=== PATIENT | female | born 1960 | race African-American/Black ===

== ENCOUNTER 2019-05-06 18:24 | Emergency (ER) | payer MEDICARE, SELFPAY ==
[2019-05-06 18:47] VITALS: BP 135/81; PULSE 96; RESP 16; TEMP 36.4; O2SAT 98; BMI 33.3
[2019-05-06] MEDS: KETOROLAC 60 MG/2 ML VIAL 30 MG IM (20:11)
--- NOTE | 2019-05-06 20:12 | ED_ITS ---
HPI - Back Pain/Injury <NANCY Arboleda - Last Filed: 05/06/19 20:41> General Chief Complaint: Back Pain/Injury Stated Complaint: pain in back of legs and buttocks bilat Time Seen by Provider: 05/06/19 19:46 Source: patient History of Present Illness HPI Narrative: 58-year-old female presents emergency department complaining of worsening sciatic pain or the past week and half. She states that a week and half ago she was packing boxes and lifting heavy objects up and down the stairs as she was moving. She reported after most of the moving she developed worsening sciatica pain bilaterally, she states her left is worse than her right. She has had a history of sciatica but this is significantly worse. He states the pain is in her but ox and radiates down to her legs. Patient states the pain is a dull aching to sharp stabbing 8/10 that is worse with movement and raising her leg. On her right side she has occasional numbness and tingling in her toes especially toe 4 and 5. She denies any limb weakness, loss of bowel or bladder control, fevers, chills, nausea, vomiting, diarrhea, or any other concerns. Related Data Previous Rx's Medication Instructions Recorded prednisone 40 mg PO DAILY 5 Days #10 tab 05/06/19 Allergies Allergy/AdvReac Type Severity Reaction Status Date / Time aspirin AdvReac Severe Palpitation Verified 05/06/19 18:52 s latex AdvReac Mild Redness of Verified 05/06/19 18:52 Skin zinc AdvReac Unknown Redness of Verified 05/06/19 18:52 Skin Review of Systems <NANCY Arboleda - Last Filed: 05/06/19 20:41> Review of Systems Narrative: REVIEW OF SYSTEMS: GENERAL: Denies fever or chills. HENT: No head trauma. EYES: No double vision or vision loss. CARDIOVASCULAR: No chest pain or syncope. RESPIRATORY: No shortness of breath or cough. GASTROINTESTINAL: No nausea, vomiting, diarrhea, or constipation. GENITOURINARY: No flank pain or dysuria. MUSCULOSKELETAL: Complains of bilateral leg/sciatic pain, see HPI. INTEGUMENTARY: No rash, lesions, or pruritus. NEURO: Complains of toe 4 and 5 with tingling, see HPI. PSYCH: No behavior or mood changes. Patient History <NANCY Arboleda - Last Filed: 05/06/19 20:41> Medical History No significant medical problems (Acute) Social History Smoking Status: Former smoker Smoking Status: Former smoker alcohol intake frequency: 0-2 drinks per day Substance Use Type: does not use Exam <NANCY Arboleda - Last Filed: 05/06/19 20:41> Initial Vital Signs Initial Vital Signs: Vital Signs Temperature 97.6 F 05/06/19 18:47 Pulse Rate 96 H 05/06/19 18:47 Respiratory Rate 16 05/06/19 18:47 Blood Pressure 135/81 05/06/19 18:47 Pulse Oximetry 98 05/06/19 18:47 PHYSICAL EXAMINATION: GENERAL: Well groomed, alert, and cooperative. Answers questions promptly and appropriately. Vital signs noted. HENT: Normocephalic, atraumatic. EYES: Symmetrical, sclera white, no periorbital swelling. CARDIOVASCULAR: S1 and S2 sounds normal. Regular rate and rhythm, no murmurs, clicks, or bruits. No pedal edema. RESPIRATORY: Normal respiratory rate, trachea midline, airway patent. No stridor, nasal flaring or accessory muscle use. Lungs are clear in all ramirez. MUSCULOSKELETAL: Tenderness to bilateral sciatica regions of buttocks, + striaght leg test. Normal gait and coordination. Equal tone and mass bilaterally. No spinal tenderness or deformities. Full range of motion of right and left feet against resistance. No weakness of limbs noted. EXTREMITIES: CMS intact. Pedal pulses intact and equal bilaterally. SKIN: Warm, dry, soft, appropriate color for ethnicity. No lesions, rashes, or wounds. NEURO: Alert and Oriented X 3. No sensory deficits. Intact light touch sensation to medial and lateral aspects of feet bilaterally. PSYCH: Appropriate affect and mood. <Eric Gunderson DO - Last Filed: 05/07/19 02:22> Initial Vital Signs Initial Vital Signs: Vital Signs Temperature 97.6 F 05/06/19 18:47 Pulse Rate 96 H 05/06/19 18:47 Respiratory Rate 16 05/06/19 18:47 Blood Pressure 135/81 05/06/19 18:47 Pulse Oximetry 98 05/06/19 18:47 Course <NANCY Arboleda - Last Filed: 05/06/19 20:41> Course Course Narrative: Patient was given injection of Toradol. Orders Ordered: Discontinued Medications Ketorolac Tromethamine (Toradol) 30 mg IM NOW ONE Stop: 05/06/19 19:57 Last Admin: 05/06/19 20:11 Dose: 30 mg Documented by: DIETER Vital Signs Vital signs: Vital Signs - 8 hr 05/06/19 18:47 05/06/19 20:38 Temperature 97.6 F Pulse Rate 96 H Respiratory Rate 16 Blood Pressure 135/81 123/81 Pulse Oximetry 98 <Eric Gunderson DO - Last Filed: 05/07/19 02:22> Orders Ordered: Discontinued Medications Ketorolac Tromethamine (Toradol) 30 mg IM NOW ONE Stop: 05/06/19 19:57 Last Admin: 05/06/19 20:11 Dose: 30 mg Documented by: DIETER Vital Signs Vital signs: Vital Signs - 8 hr 05/06/19 18:47 05/06/19 20:38 Temperature 97.6 F Pulse Rate 96 H Respiratory Rate 16 Blood Pressure 135/81 123/81 Pulse Oximetry 98 MDM - Back Pain/Injury <NANCY Arboleda - Last Filed: 05/06/19 20:41> Medical Records Attestation: I reviewed the patient's medical records. Lab Data Attestation: I reviewed the patient's lab results. MDM Narrative Medical decision making narrative: This is a 58-year-old female presents emergency department for worsening sciatica. She has a history of sciatica and states this pain feels very similar but is more severe in duration. She reported around the same time the pain began she was moving boxes and lifting heavy objects. Patient has been taking Flexeril, Lortab, and Advil. After discussion with patient, she elected do a try a regimen of prednisone to help with nerve irritation and swelling. We discussed that this may be more beneficial as she has had some tingling in her toes. I suspect this is related to her sciatica (similar pain, radiates down leg, positive straight leg test, history of moving objects). Less likely cauda equina due to equal strength in l ower limbs bilaterally, no loss of bowel or bladder control, no change in light touch sensation to feet. Less likely vascular due to lack of calf pain or tenderness, less likely arterial as pedal pulses are 2+ and intact bilaterally. She was given a card to establish a primary care provider. we discussed the importance of follow-up and possible physical therapy as another option diet deal with pain. She was given strict ED return precautions. Patient is a plan of care verbalized understanding. Discharge Plan Departure Patient Disposition: Home Clinical Impression: Sciatica Qualifiers: Laterality: bilateral Qualified Code(s): M54.31 - Sciatica, right side Discharge Date/Time: 05/06/19 20:38 Instructions: DI for Sciatica Activity Restrictions/Additional Instructions: Thank you for entrusting me with your care today. As discussed, your pain is most likely caused by sciatica. I have given you a prescription for prednisone which is a steroid, this can cause anxiety, insomnia, acid reflux, and increased hunger. This will help decrease the inflammation and nerve irritation. You can take Tylenol, ibuprofen, and the Lortab that you have in addition to this if needed. Follow up with a primary care provider in 1-2 weeks for further evaluation and discussion of possible physical therapy for pain continues. Return emergency department for any new or worsening symptoms such as loss of bowel or bladder control, limb weakness, severe pain, abdominal pain, high fevers, severe headaches, vision changes, or any other concerns. Prescriptions: New prednisone 20 mg tablet 40 mg PO DAILY 5 Days Qty: 10 RF: 0 <Eric Gunderson DO - Last Filed: 05/07/19 02:22> Sign Out Provider Sign Out Attestation: I was immediately available in the department for consultation. This documentation has been reviewed and I agree with assessment and plan. Supervised by Eric Gunderson DO
[2019-05-06 20:38] VITALS: BP 123/81
== END 2019-05-06 20:38 | disposition home or self-care (01) ==
PROVIDERS: Emergency Provider Nurse Practitioner
DX: M54.31 Sciatica, right side (principal)
CPT/HCPCS: 96372; 99283; J1885

== ENCOUNTER → 2019-12-28 08:29 | Outpatient (CLI) | payer OTHER, SELFPAY ==
--- NOTE | 2019-12-28 | DI.MG.S_ITS ---
BILATERAL DIGITAL DIAGNOSTIC MAMMOGRAM 3D/2D: 12/28/2019 CLINICAL: Right breast lump which has now resolved. Patient is currently asymptomatic. Comparison is made to exams dated: 11/23/2018 mammogram, 12/13/2016 mammogram, and 12/11/2015 mammogram - [facility]. The tissue of both breasts is heterogeneously dense. This may lower the sensitivity of mammography. No significant masses, calcifications, or other findings are seen in either breast. IMPRESSION: NEGATIVE There is no abnormality seen in the right breast to correspond with the area of clinical concern, palpable abnormality and pain (both of which has now resolved), however, recommend clinical follow up for persistent or worsening symptoms, or development of any clinically suspicious findings. There is no mammographic evidence of malignancy. A 1 year screening mammogram is recommended. This exam was interpreted at Station ID: [id number]. NOTE: For mammograms, a report in lay terms will be sent to the patient. Approximately 15% of breast malignancies will not be visualized mammographically. In the management of a palpable breast mass, a negative mammogram must not discourage biopsy of a clinically suspicious lesion. Electronically Signed By: Jim Hernandez M.D. aty/:12/28/2019 10:09:40 letter sent: Clinical Evaluation ACR BI-RADS Category 1: Negative [id number]
== END ==
PROVIDERS: PCP Internal Medicine; Referring Provider Internal Medicine; Visit Provider Internal Medicine
DX: N63.10 Unspecified lump in the right breast, unspecified quadrant (principal)
CPT/HCPCS: 77066; G0279

== ENCOUNTER 2020-06-06 08:02 | Emergency (ER) | payer MEDICARE, SELFPAY ==
[2020-06-06 08:12] VITALS: BP 136/93; PULSE 118; RESP 16; TEMP 36.8; O2SAT 97; BMI 33.0
--- NOTE | 2020-06-06 08:19 | ED_ITS ---
HPI - Back Pain/Injury General Chief Complaint: Back Pain/Injury Stated Complaint: neck/back pain /dry cough Time Seen by Provider: 06/06/20 08:15 Source: patient and old records reviewed Mode of arrival: Ambulatory Limitations: no limitations History of Present Illness HPI Narrative: This is a pleasant 59-year-old female who comes to the emergency department with complaint of acute on chronic cervical and thoracic back pain. Patient states she has a known herniated disc in her neck. She states that for the last 3 days she has had some increasing discomfort and her symptoms have been flaring. She has known arthritis in her knee as well as her hands. Patient states that she has had prednisone on her past visit here which was helpful. She has taken Lortab in the past which has been helpful as well. She has tried Tylenol, ibuprofen and Advil with minimal improvement. She has not had any recent trauma, injuries or tweaked her back recently. Patient does have a history of hypertension, dyslipidemia, GERD, hypothyroid as well as bipolar. Patient states she has had injection in her hand with lidocaine which was helpful for what she describes as almost a trigger finger but affecting fingers 2 through 4. She states she does not currently have a local primary care provider and has had difficulty finding one. She denies any new numbness, weakness or tingling in her extremities. No bowel or bladder incontinence. She has not had any saddle anesthesia. Patient denies any chest pain or shortness of breath that is new. She has had a mild cough. She denies any other GI or urinary symptoms currently. Related Data Home Medications Medication Instructions Recorded Confirmed amitriptyline 50 mg PO BEDTIME 06/06/20 06/06/20 cyclobenzaprine 10 mg PO TID 06/06/20 06/06/20 dicyclomine 20 mg PO BID 06/06/20 06/06/20 levothyroxine 5 mcg PO DAILY 06/06/20 06/06/20 lithium carbonate 150 mg PO BID 06/06/20 06/06/20 omeprazole 40 mg PO DAILY 06/06/20 06/06/20 pravastatin 80 mg PO BEDTIME 06/06/20 06/06/20 propranolol 80 mg PO DAILY 06/06/20 06/06/20 ranitidine HCl 150 mg PO DAILY 06/06/20 06/06/20 risperidone 1 mg PO BEDTIME 06/06/20 06/06/20 sertraline 50 mg PO DAILY 06/06/20 06/06/20 verapamil 240 mg PO DAILY 06/06/20 06/06/20 Previous Rx's Medication Instructions Recorded prednisone 40 mg PO DAILY 5 Days #10 tab 06/06/20 Allergies Allergy/AdvReac Type Severity Reaction Status Date / Time aspirin AdvReac Severe Palpitation Verified 11/10/19 09:59 s latex AdvReac Mild Redness of Verified 11/10/19 09:59 Skin zinc AdvReac Unknown Redness of Verified 11/10/19 09:59 Skin Review of Systems Review of Systems ROS Unobtainable: All systems reviewed & are unremarkable except as noted in HPI and below Patient History Medical History (Updated 06/06/20 @ 08:46 by Toma Ayers DO) Dyslipidemia Hypertension Hypothyroid No significant medical problems Social History Smoking Status: Former smoker Smoking Status: Former smoker alcohol intake frequency: 0-2 drinks per day Substance Use Type: does not use Exam Narrative Exam Narrative: GEN: well nourished, well appearing female, alert and oriented x 3, patient appears to be in mild distress. HEENT: Atraumatic, pupils are equal round reactive to light, extraocular movements are intact. HEART: Regular rate and rhythm without murmur, clicks, rubs. LUNGS:Lungs clear to auscultation, no wheezes, rales, crackles, chest moves symmetrically ABD:bowel sounds normal, soft, non-tender, no guarding, rebound, rigidity, no masses noted, no hepatosplenomegaly :No CVA tenderness BACK: No cervical, lumbar vertebral point tenderness. Patient has very mild tenderness the T9-10 thoracic spine. Patient has normal range of motion. Patient's gait is normal. Rectal exam is deferred. Muscle strength is 5/5 in upper and lower extremities, DTRs are 2/4 upper and lower extremities. Dorsalis pedis and tibialis pulses are 2+ and 2+ radial pulses bilaterally. Sensation is intact in the upper and lower extremities. MSCL: Non-tender, no muscle atrophy. NEURO:CN 2-12 intact, sensation normal SKIN: No rash, erythema other skin changes appreciated. Initial Vital Signs Initial Vital Signs: Vital Signs Temperature 98.3 F 06/06/20 08:12 Pulse Rate 118 H 06/06/20 08:12 Respiratory Rate 16 06/06/20 08:12 Blood Pressure 136/93 H 06/06/20 08:12 Pulse Oximetry 97 06/06/20 08:12 Course Orders Ordered: ED Orders 06/06/20 08:38 XR thoracic spine 3V Stat Discontinued Medications Ketorolac Tromethamine (Ketorolac 60 Mg/2 Ml Vial) 30 mg IM NOW ONE Stop: 06/06/20 08:39 Last Admin: 06/06/20 08:45 Dose: 30 mg Documented by: SLOAN Reevaluation(s) Reevaluation #1: patient requesting to leave. Time: 10:10 Vital Signs Vital signs: Vital Signs - 8 hr 06/06/20 08:12 06/06/20 10:05 Temperature 98.3 F Pulse Rate 118 H 98 H Respiratory Rate 16 18 Blood Pressure 136/93 H 136/92 H Pulse Oximetry 97 97 MDM - Back Pain/Injury Imaging Data Tspine xray: Radiologist's Impression: [address] [id number] ReportSigned Patient: Latonia Navarro#: [id number]: 2Acct:[id number]/Sex: 59 / FDate of Service: 06/06/20Loc: EDAccession Number: [id number] Procedure: XR thoracic spine 3V Ordering Provider: Toma Ayers D.O. PROCEDURE: XR THORACIC SPINE 3V INDICATIONS: thoracic back pain/T9/10 region. acute on chronic TECHNIQUE: 3 views of the thoracic spine were acquired. COMPARISON: None. FINDINGS: Bones: No fractures or dislocations. No suspicious bony lesions. 12 pairs of ribs are noted, and appear intact where visualized. Soft tissues: No paravertebral stripe thickening. IMPRESSION: No evidence acute bony abnormality of the thoracic spine. If clinical suspicion and/or symptoms persist, further assessment with repeat plain films, or advanced imaging (e.g., CT, MRI, or bone scan) may be helpful for further assessment. Dictated by: Arian Escobar M.D. on 06/06/2020 at 9:37 Approved by: Arian Escobar M.D. on 06/06/2020 at 9:45 MDM Narrative Medical decision making narrative: WAPWP is negative. Patient states she has known cervical disc disease. Which is likely causing her upper extremity issues. She states she had imaging of her thoracic spine but it has been multiple years. She has had acute worsening recently. Discussed a plan to r epeat imaging of her thoracic spine but not her cervical at this time. She does not currently have any red flag symptoms. Plan for Toradol IM here after discussion patient she has had improvement with prednisone in the past. And thoracic imaging no acute abnormalities are appreciated. Patient had improved in the past with prednisone and this was prescribed. Plan for Tylenol ibuprofen in conjunction. Return precautions discussed, patient does not have local follow-up so was given several options. Discharge Plan Departure Patient Disposition: Home Clinical Impression: Back pain Qualifiers: Back pain location: thoracic back pain Instructions: DI for Thoracic Back Pain Activity Restrictions/Additional Instructions: Follow up with primary care, if you do not have a primary care physician. [facility], [facility], [facility] physician or [facility] are all options. Continue home medications as prescribed. Take prednisone once daily until gone. I would recommend taking this with food, it can upset your stomach. Please return for fevers, rapidly worsening symptoms, new weakness, numbness or loss of sensation, loss of bowel or bladder control, inability to walk or other new or concerning symptoms. Prescriptions: New prednisone 20 mg tablet 40 mg PO DAILY 5 Days Qty: 10 RF: 0 No Action cyclobenzaprine 10 mg tablet 10 mg PO TID RF: 0 amitriptyline 50 mg tablet 50 mg PO BEDTIME RF: 0 sertraline 100 mg tablet 50 mg PO DAILY RF: 0 omeprazole 40 mg capsule,delayed release(DR/EC) 40 mg PO DAILY RF: 0 pravastatin 80 mg tablet 80 mg PO BEDTIME RF: 0 dicyclomine 20 mg Tablet 20 mg PO BID RF: 0 lithium carbonate 300 mg capsule 150 mg PO BID RF: 0 propranolol 80 mg capsule,extended release 24 hr 80 mg PO DAILY RF: 0 verapamil 240 mg tablet extended release 240 mg PO DAILY RF: 0 ranitidine HCl 150 mg Capsule 150 mg PO DAILY RF: 0 risperidone 0.5 mg tablet 1 mg PO BEDTIME RF: 0 levothyroxine 13 mcg Capsule 5 mcg PO DAILY RF: 0 Referrals: Abril Bal MD [Primary Care Provider] -
--- NOTE | 2020-06-06 08:38 | DI.RAD.S_ITS ---
PROCEDURE: XR THORACIC SPINE 3V INDICATIONS: thoracic back pain/T9/10 region. acute on chronic TECHNIQUE: 3 views of the thoracic spine were acquired. COMPARISON: None. FINDINGS: Bones: No fractures or dislocations. No suspicious bony lesions. 12 pairs of ribs are noted, and appear intact where visualized. Soft tissues: No paravertebral stripe thickening. IMPRESSION: No evidence acute bony abnormality of the thoracic spine. If clinical suspicion and/or symptoms persist, further assessment with repeat plain films, or advanced imaging (e.g., CT, MRI, or bone scan) may be helpful for further assessment. Dictated by: Arian Escobar M.D. on 06/06/2020 at 9:37 Approved by: Arian Escobar M.D. on 06/06/2020 at 9:45
[2020-06-06] MEDS: KETOROLAC 60 MG/2 ML VIAL 30 MG IM (08:45)
[2020-06-06 10:05] VITALS: BP 136/92; PULSE 98; RESP 18; O2SAT 97
== END 2020-06-06 10:13 | disposition home or self-care (01) ==
PROVIDERS: Emergency Provider Emergency Medicine; PCP Internal Medicine
DX: M54.6 Pain in thoracic spine (principal)
CPT/HCPCS: 72072; 96372; 99283; J1885